=== PATIENT | male | born 1995 | race Caucasian/White ===

== ENCOUNTER 2017-04-25 12:28 | Emergency (ER) | payer OTHER ==
[~2017-04-25] VITALS: Ht 170.2 cm; Wt 80.0 kg
[2017-04-25 12:33] VITALS: BP 126/72; PULSE 114; RESP 20; TEMP 97.8; O2SAT 99
--- NOTE | 2017-04-25 12:38 | PD ---
Physical Exam Date Seen by Provider: Apr 25, 2017 Time Seen by Provider: 12:34 Narrative 21-year-old white male presents to emergency Department with complaints of possible left internal hernia. He states that over the last 2 weeks he has noted a lump in his left groin. He states that the pain comes and goes. There is not any 1 particular activity that exacerbates his pain. He states his pain is a 1/10 but can go up to a 6/10. He's been eating and drinking normally. He states that he is able to exercise and do things without causing exacerbation of his pain. States that the area does large and go down at times. He denies any fever chills. No urethral symptoms. Vital signs reviewed. Awaiting bed placement. Data Data Last Documented VS Vital Signs Date Time Temp Pulse Resp B/P (MAP) Pulse Ox O2 Delivery O2 Flow Rate FiO2 04/25/17 12:33 97.8 114 20 126/72 (90) 99 Room Air [facility] Medical Record Reviewed: No Supervised Visit with STEPHANIE: Derick Taylor Apr 25, 2017 12:37
--- NOTE | 2017-04-25 13:00 | PD ---
HPI Chief Complaint: GI Complaint Time Seen by Provider: 12:39 Travel History International Travel<30 days: No Contact w/Intl Traveler<30days: No Traveled to known affect area: No History of Present Illness HPI 21-year-old male presents emergency Department with complaint of left groin pain 2 weeks. Says he notices a lump to the left upper mons pubis area at times. Reports having occasional pain to the area; says once or twice daily at the most. Denies history of hernia. Denies fever, vomiting, abdominal pain. Denies dysuria, change in stool. Denies testicular pain, testicular swelling, penile discharge, no pain. No known relieving or aggravating factors. Has not been taking and medications are trying any treatments to alleviate his symptoms. Symptoms are mild in severity. Has no other medical complaints. No other modifying factors or associated signs and symptoms. [facility] Social History Tobacco Use: No Review of Systems Except as stated in HPI: all other systems reviewed are Neg Physical Exam Narrative GENERAL: Well-nourished, well-developed male patient, in no acute distress SKIN: Warm and dry. HEAD: Atraumatic. Normocephalic. EYES: Pupils equal and round. ENT: Mucosa pink and moist. NECK: Trachea midline. No lymphadenopathy. CARDIOVASCULAR: Regular rate. RESPIRATORY: No accessory muscle use. GASTROINTESTINAL: Flat. GENITOURINARY: Exam done in the presence of a nurse. Circumcised. Testes descended bilaterally without evidence of rotation. Left mons pubis and groin area without visualized or palpable hernia in the lying down and standing up position; No tenderness to the area elicited on palpation. MUSCULOSKELETAL: No obvious deformities. No clubbing. No cyanosis. No edema. NEUROLOGICAL: Awake and alert. Oriented 3. No obvious cranial nerve deficits. Motor grossly within normal limits. Normal speech. Moves all extremities. 5/5 strength to all extremities. PSYCHIATRIC: Appropriate mood and affect; insight and judgment normal. Data Data Last Documented VS Vital Signs Date Time Temp Pulse Resp B/P (MAP) Pulse Ox O2 Delivery O2 Flow Rate FiO2 04/25/17 12:33 97.8 114 20 126/72 (90) 99 Room Air MDM Medical Decision Making Medical Screen Exam Complete: Yes Emergency Medical Condition: Yes Medical Record Reviewed: Yes Differential Diagnosis Inguinal hernia, groin pain, Crohn strain Narrative Course 21-year-old male with left groin pain. There is no visualized or palpable hernia to the area of concern, both lying down or standing up. No tenderness elicited on exam. Instructed patient to follow up with general surgeon. Instructed patient to follow up with primary care provider. Patient verbalizes understanding and agreement with treatment plan. Patient is medically cleared and stable for discharge. Discussed reasons to return to the emergency department. Patient agrees with treatment plan. The patients vital signs are stable and the patient is stable for outpatient follow-up and treatment. Patient discharged home, stable and in no acute distress. Diagnosis Primary Impression: Left groin pain Referrals: General Surgeon Primary Care Physician Patient Instructions: General Instructions, Inguinal Hernia (ED) Additional Instructions: Ibuprofen or Tylenol as needed and as directed for pain Follow-up with primary care provider Follow-up with general surgeon as needed Return to the emergency department immediately, particularly with symptoms as discussed Med/Other Pt SpecificInfo: No Meds Exist/No RX given Disposition: DISCHARGE HOME Condition: Stable Marquita Michael Apr 25, 2017 13:00
== END 2017-04-25 14:08 | disposition home or self-care (01) ==
LOC: NEPD 12:28
DX: R10.32 Left lower quadrant pain (principal)
CPT/HCPCS: 99282